=== PATIENT | female | born 1980 | race Caucasian/White ===

== ENCOUNTER 2017-10-13 08:05 | Day surgery (SDC) | payer SELFPAY ==
[2017-10-06 14:22] VITALS: BMI 31.2
[2017-10-13] MEDS ORDERED: PROPOFOL 20 ML ONE ×6 (10:17→13:37)
[2017-10-13] MEDS ORDERED: MIDAZOLAM HCL 2 MG/2 ML SINGLE DOSE VIAL ONE (10:17)
[2017-10-13] MEDS ORDERED: LIDOCAINE HCL 2% JELLY (5 ML/TUBE) ONE (10:33)
[2017-10-13] MEDS ORDERED: ePHEDrine SULFATE 50 MG/1 ML AMPULE ONE (10:50)
[2017-10-13] MEDS ORDERED: ONDANSETRON 4 MG/2 ML VIAL ONE ×2 (10:52→12:42)
[2017-10-13] MEDS ORDERED: DEXAMETHASONE SOD PHOSPHATE 4 MG/1 ML VIAL ONE (10:52)
[2017-10-13] MEDS ORDERED: ceFAZolin SODIUM 1 GM VIAL ONE (10:52)
[2017-10-13] MEDS ORDERED: HYDROmorphone HCL/PF 1 MG/ML VIAL (FOR PYXIS CHARGING ONLY) ONE ×2 (11:09→11:46)
[2017-10-13] MEDS ORDERED: ONDANSETRON 4 MG/2 ML VIAL IVPB PRN (14:20)
[2017-10-13] MEDS ORDERED: oxyCODONE HCL 5 MG TABLET PO PRN ×4 (14:20→14:32)
--- NOTE | 2017-10-13 14:23 | OP ---
Operative Note - Note: Operative Date: 10/13/17 Pre-Operative Diagnosis: cosmetic Operation: bilateral brachioplasty Post-Operative Diagnosis: Same as Pre-op Surgeon: Ry Brandt Computational Geneticist: Cinda Myers Anesthesia: General Drains & Tubes with Location: jovon each arm Operative Report Dictated: Yes
[2017-10-13] MEDS ORDERED: LACTATED RINGERS SOLUTION 1,000 ML IV SCH (14:30)
[2017-10-13] MEDS ORDERED: ONDANSETRON 4 MG/2 ML VIAL IVPUSH PRN (14:32)
[2017-10-13] MEDS ORDERED: HYDROmorphone HCL CARPU-JECT 1 MG/1 ML DISP.SYRIN IVPUSH PRN (14:32)
[2017-10-13] MEDS ORDERED: PROMETHAZINE HCL 25 MG/1 ML VIAL IVPUSH PRN (14:32)
[2017-10-13] MEDS ORDERED: oxyCODONE HCL 5 MG TABLET ONE (15:53)
[2017-10-13 18:18] VITALS: TEMP 98
[2017-10-13 18:29] VITALS: BP 136/82; PULSE 70
--- NOTE | 2017-10-17 11:24 | OP ---
DATE OF OPERATION: 10/13/2017 PROCEDURE: Bilateral brachioplasty. PREOPERATIVE DIAGNOSIS: Bilateral arm excess skin. POSTOPERATIVE DIAGNOSIS: Bilateral arm excess skin. ANESTHESIA: General endotracheal anesthesia. DESCRIPTION OF PROCEDURE: The patient is seen in the holding area, marked for surgery, awake and aware of all incisions and resulting scars. Patient is counseled on all risks, benefits, and alternatives as well as limitations of the operation. She understands and agrees to proceed. Sequential compression stockings as well as MAKENZIE hose are applied preoperatively. Patient was given 1 g of Ancef preoperatively and brought to the operating room. She is placed in the supine position, positioned by the surgical and anesthesia teams. All aware of the positioning. The patient was then prepped and draped in the standard surgical fashion. A timeout was called and the patient, procedure, site, and side were verified. Attention was first directed towards the right arm where the longitudinal skin incision was made, centered over the medial surface of the arm. Dissection is carried down to the level of the muscular fascia. The entire dissection is performed in a prefascial plane. At no point was the muscular fascia of the arm rented. The skin was undermined in this plane until a tailor tacking procedure can assess the appropriate amount of excision. Once this is judged, the markings for the posterior incision are made and the incision was made and the skin and fat between the 2 incisions is removed. Hemostasis was meticulously achieved. The wound were copiously irrigated. The skin is tailor tacked with maria eugenia. Attention was then directed towards the contralateral left side where a mirror image procedure is performed with the skin tailor tacked with maria eugenia. The arms are assessed bilaterally to be symmetric in shape and size. The size 10 flat CLAUDIA drains were brought out through the lateral extent of the incision, actually through the lateral stab wounds near the apex of the lateral extent of the incision. The drain is secured with a 3-0 silk drain suture. Closure is performed bilaterally with a series of interrupted buried fascial 2-0 PDS sutures in the superficial fascia of the fatty tissue of the arm, after which a closure of the skin is performed with a series of interrupted buried deep dermal 3-0 Monocryl suture followed by a running subcuticular 3-0 Monocryl suture. This is done bilaterally. A dressing of Steri-Strips, ABD gauze, and a compression arm brachioplasty garment was applied. Patient was awoken from anesthesia, having tolerated the procedure well, and transferred to recovery. Corey [id number]
== END 2017-10-13 17:50 | disposition home or self-care (01) ==
LOC: FASU 08:05
PROVIDERS: ATTEND Plastic Surgery
CPT/HCPCS: 84703; 94760